=== PATIENT | female | born 1950 | race Caucasian/White ===

== ENCOUNTER 2017-11-10 22:57 | Emergency (ER) | payer OTHER ==
[~2017-11-10 22:57] MED LIST: BYST5TAB2 PO; HYDR1ELX PO; LEVO88TA2 PO; LORA0.5T PO; PRAV20TA2 PO
[2017-11-10 23:05] VITALS: BP 171/120; PULSE 73; RESP 16; TEMP 98.3; O2SAT 99
[2017-11-10] MEDS ORDERED: SODIUM CHLORIDE 0.9% FLUSH 10 ML FLUSH IV FLUSH PRN (23:15)
[2017-11-10] MEDS ORDERED: ONDANSETRON HCL 4 MG/2 ML VIAL ONE (23:32)
[2017-11-11 00:19] VITALS: O2SAT 99
[2017-11-11] MEDS ORDERED: BYST5TAB2 PO (00:23)
[2017-11-11] MEDS ORDERED: HYDROmorphone HCL PF 1 MG/ML VIAL IV PUSH ONE (00:30)
[2017-11-11] MEDS ORDERED: ONDANSETRON HCL 4 MG/2 ML VIAL IV PUSH ONE (00:30)
[2017-11-11] MEDS ORDERED: SODIUM CHLORID 0.9% 500 ML INJ 500 ML IV ONE (00:30)
--- NOTE | 2017-11-11 00:30 | PD ---
HPI Chief Complaint: Abdominal Pain Time Seen by Provider: 00:26 Travel History International Travel<30 days: No Contact w/Intl Traveler<30days: No Traveled to known affect area: No History of Present Illness HPI 67-year-old female patient with history of stomach cancer stage IV, follows up with Dr. Ahumada, has been on chemotherapy and they are evaluating her for possible surgical treatment, here because of worsening in upper abdominal pain especially on the right side. Pain is rated 10 out of 10. She has been nauseous and throwing up. She denies any fevers or other issues. She states that this is ongoing pain but has worsened tonight. Modifying Factors: None Associated Signs & Symptoms: Upper abdominal pains, nausea and vomiting Risk Factors: History of stomach cancer PFSH Past Medical History Arthritis: Yes (rheumatoid athritis) Anxiety: Yes Depression: Yes Cancer: Yes Cardiovascular Problems: No High Cholesterol: Yes Chemotherapy: No Diabetes: No Diminished Hearing: No Endocrine: Yes GERD: No Genitourinary: No Hepatitis: No Hiatal Hernia: No Hypertension: Yes Immune Disorder: No Medical other: Yes (abd cx) Musculoskeletal: Yes Neurologic: No Psychiatric: Yes Reproductive: Yes Respiratory: No Radiation Therapy: No Thyroid Disease: Yes Ulcer: No Past Surgical History Abdominal Surgery: Yes (hernia repair bladder repair) AICD: No Body Medical Devices: N/A Cardiac Surgery: No Ear Surgery: No Endocrine Surgery: No Eye Surgery: Yes (blood clot) Genitourinary Surgery: No Gynecologic Surgery: Yes (csection hystercetomy) Hysterectomy: Yes Joint Replacement: No Oral Surgery: No Pacemaker: No Thoracic Surgery: No Other Surgery: Yes (INGUINAL HERNIA ) Social History Alcohol Use: No Tobacco Use: No Substance Use: No Allergies-Medications (Allergen,Severity, Reaction): Coded Allergies: Sulfa (Sulfonamide Antibiotics) (Verified Allergy, Severe, RASH, 11/11/17) ibuprofen (Verified Allergy, Severe, RASH, 11/11/17) penicillin G (Verified Allergy, Severe, RASH, 11/11/17) Reported Meds & Prescriptions Reported Meds & Active Scripts Active Reported Bystolic (Nebivolol) 5 Mg Tab 5 Mg PO EVERY OTHER DAY Lortab Liq (Hydrocodone-Acetaminophen Liq) 10-300 Mg/15 Ml Elix 10 Ml PO Q6H PRN Lorazepam 0.5 Mg Tab 0.5 Mg PO Q8H PRN Pravastatin 20 Mg Tab 20 Mg PO DAILY Levothyroxine (Levothyroxine Sodium) 88 Mcg Tab 88 Mcg PO DAILY Review of Systems Except as stated in HPI: all other systems reviewed are Neg Physical Exam Narrative GENERAL: Well-developed elderly female patient currently in moderate distress. She is anxious, crying in the ER. Awake and oriented 3. SKIN: Focused skin assessment warm/dry. HEAD: Atraumatic. Normocephalic. EYES: Pupils equal and round. No scleral icterus. No injection or drainage. ENT: No nasal bleeding or discharge. Mucous membranes pink and moist. NECK: Trachea midline. No JVD. Supple. CARDIOVASCULAR: Regular rate and rhythm. No murmur appreciated. RESPIRATORY: No accessory muscle use. Clear to auscultation. Breath sounds equal bilaterally. GASTROINTESTINAL: Abdomen soft, upper abdominal tenderness especially in the right upper quadrant without guarding or rebound, nondistended. Hepatic and splenic margins not palpable. MUSCULOSKELETAL: No obvious deformities. No clubbing. No cyanosis. No edema. NEUROLOGICAL: Awake and alert. No obvious cranial nerve deficits. Motor grossly within normal limits. Normal speech. PSYCHIATRIC: Anxious mood and affect; insight and judgment normal. Data Data Last Documented VS Vital Signs Date Time Temp Pulse Resp B/P (MAP) Pulse Ox O2 Delivery O2 Flow Rate FiO2 11/11/17 00:19 99 Room Air 11/10/17 23:05 98.3 73 16 171/120 (137) Orders Orders Complete Blood Count With Diff (11/10/17 23:11) Comprehensive Metabolic Panel (11/10/17 23:11) Lipase (11/10/17 23:11) Urinalysis - C+S If Indicated (11/10/17 23:11) Iv Access Insert/Monitor (11/10/17 23:11) Ecg Monitoring (11/10/17 23:11) Oximetry (11/10/17 23:11) Sodium Chloride 0.9% Flush (Ns Flush) (11/10/17 23:15) Ondansetron Inj (Zofran Inj) (11/10/17 23:32) Ondansetron Inj (Zofran Inj) (11/11/17 00:30) Sodium Chlorid 0.9% 500 Ml Inj (Ns 500 M (11/11/17 00:30) Ct Abd/Pel W Iv Contrast(Rout) (11/11/17 00:27) Hydromorphone Pf Inj (Dilaudid Pf Inj) (11/11/17 00:45) Urine Culture (11/11/17 00:38) Iohexol 350 Inj (Omnipaque 350 Inj) (11/11/17 03:30) Ed Discharge Order (11/11/17 03:55) Nitrofurantoin Monohyd Macrocr (Macrobid (11/11/17 04:00) Labs Laboratory Tests Test 11/11/17 00:22 11/11/17 00:38 White Blood Count 6.5 TH/MM3 Red Blood Count 4.14 MIL/MM3 Hemoglobin 12.6 GM/DL Hematocrit 37.7 % Mean Corpuscular Volume 91.0 FL Mean Corpuscular Hemoglobin 30.5 PG Mean Corpuscular Hemoglobin Concent 33.5 % Red Cell Distribution Width 18.3 % Platelet Count 319 TH/MM3 Mean Platelet Volume 8.6 FL Neutrophils (%) (Auto) 70.2 % Lymphocytes (%) (Auto) 15.6 % Monocytes (%) (Auto) 12.0 % Eosinophils (%) (Auto) 1.7 % Basophils (%) (Auto) 0.5 % Neutrophils # (Auto) 4.6 TH/MM3 Lymphocytes # (Auto) 1.0 TH/MM3 Monocytes # (Auto) 0.8 TH/MM3 Eosinophils # (Auto) 0.1 TH/MM3 Basophils # (Auto) 0.0 TH/MM3 CBC Comment DIFF FINAL Differential Comment Blood Urea Nitrogen 4 MG/DL Creatinine 0.69 MG/DL Random Glucose 92 MG/DL Total Protein 6.3 GM/DL Albumin 3.0 GM/DL Calcium Level 9.2 MG/DL Alkaline Phosphatase 93 U/L Aspartate Amino Transf (AST/SGOT) 48 U/L Alanine Aminotransferase (ALT/SGPT) 27 U/L Total Bilirubin 0.3 MG/DL Sodium Level 139 MEQ/L Potassium Level 3.7 MEQ/L Chloride Level 101 MEQ/L Carbon Dioxide Level 30.6 MEQ/L Anion Gap 7 MEQ/L Estimat Glomerular Filtration Rate 85 ML/MIN Lipase 142 U/L Urine Color YELLOW Urine Turbidity HAZY Urine pH 6.5 Urine Specific [place] 1.017 Urine Protein TRACE mg/dL Urine Glucose (UA) NEG mg/dL Urine Ketones NEG mg/dL Urine Occult Blood NEG Urine Nitrite NEG Urine Bilirubin NEG Urine Urobilinogen LESS THAN 2.0 MG/DL Urine Leukocyte Esterase LARGE Urine RBC 2 /hpf Urine WBC 32 /hpf Urine Squamous Epithelial Cells 2 /hpf Urine Calcium Oxalate Crystals FEW /hpf Urine Mucus MANY /lpf Microscopic Urinalysis Comment CULTURE INDICATED MDM Medical Decision Making Medical Screen Exam Complete: Yes Emergency Medical Condition: Yes Medical Record Reviewed: Yes Interpretation(s) Laboratory Tests Test 11/11/17 00:22 11/11/17 00:38 Red Cell Distribution Width 18.3 % (11.6-17.2) Neutrophils (%) (Auto) 70.2 % (16.0-70.0) Monocytes (%) (Auto) 12.0 % (0.0-8.0) Blood Urea Nitrogen 4 MG/DL (7-18) Total Protein 6.3 GM/DL (6.4-8.2) Albumin 3.0 GM/DL (3.4-5.0) Aspartate Amino Transf (AST/SGOT) 48 U/L (15-37) Estimat Glomerular Filtration Rate 85 ML/MIN (>89) Urine Turbidity HAZY (CLEAR) Urine Leukocyte Esterase LARGE (NEG) Urine WBC 32 /hpf (0-5) Urine Calcium Oxalate Crystals FEW /hpf (NONE) Urine Mucus MANY /lpf (OCC) Differential Diagnosis Abdominal pain, nausea and vomiting: Cancer related pain versus obstruction versus pancreatitis versus metastases versus other acute intra-abdominal processes Narrative Course Lab work shows significant UTI. Her AST is mildly elevated. CAT scan did not show any signs of acute processes. She has signs that she has a gastric carcinoma which is consistent with history. At this point, patient had been given IV fluids and pain medications and on reevaluation at 3:50 AM, she appears to be much improved, states that the pain is much more controlled now. My plan would be to release her with treatment for UTI and have her follow-up with Dr. Parra regarding further pain control. Return for any worsening in symptoms as necessary. The plan has been discussed with her and she states understanding. Diagnosis Primary Impression: Abdominal pain Additional Impression: UTI (urinary tract infection) Med/Other Pt SpecificInfo: Prescription(s) given Scripts Ondansetron Odt (Zofran Odt) 4 Mg Tab 4 MG SL Q6HR Y for Nausea/Vomiting, #7 TAB 0 Refills Prov: Jose Manuel Freeman MD 11/11/17 Nitrofurantoin Monohydrate Macrocrystals (Macrobid) 100 Mg Cap 100 MG PO BID for Infection for 7 Days, #14 CAP 0 Refills Prov: Jose Manuel Freeman MD 11/11/17 Disposition: 01 DISCHARGE HOME Condition: Stable Jose Manuel Freeman MD Nov 11, 2017 00:30
[2017-11-11 00:39] LABS: AUTOMATED NEUTROPHIL # 4.6 TH/MM3 (1.8-7.7); BASOPHIL % 0.5 % (0.0-2.0); EOSINOPHIL # 0.1 TH/MM3 (0-0.4); EOSINOPHIL % 1.7 % (0.0-4.0); HEMATOCRIT 37.7 % (35.0-46.0); HEMOGLOBIN 12.6 GM/DL (11.6-15.3); LYMPH % 15.6 % (9.0-44.0); MEAN CORPUSCULAR HEMOGLOBIN 30.5 PG (27.0-34.0); MEAN CORPUSCULAR HGB CONC 33.5 % (32.0-36.0); MEAN PLATELET VOLUME 8.6 FL (7.0-11.0); MONOCYTE # 0.8 TH/MM3 (0-0.9); NEUT % 70.2 % (16.0-70.0); PLATELET COUNT 319 TH/MM3 (150-450); RED BLOOD COUNT 4.14 MIL/MM3 (4.00-5.30); RED CELL DISTRIBUTION WIDTH 18.3 % (11.6-17.2); WHITE BLOOD COUNT 6.5 TH/MM3 (4.0-11.0)
[2017-11-11] MEDS ORDERED: HYDROmorphone HCL PF 2 MG/ML VIAL IV PUSH ONE (00:45)
[2017-11-11 00:51] LABS: BILIRUBIN, URINE NEG (NEG); BLOOD, URINE NEG (NEG); CALCIUM OXALATE CRYSTALS,URINE FEW /hpf; GLUCOSE,URINE NEG (NEG); KETONE, URINE NEG (NEG); MUCUS URINE MANY /lpf (OCC); NITRITE,URINE NEG (NEG); PH, URINE 6.5 (5.0-8.5); SQUAMOUS EPITHELIAL CELL URINE 2 /hpf (0-5); URINE COLOR YELLOW (YELLW/STRAW); URINE LEUKOCYTE ESTERASE LARGE (NEG)
[2017-11-11 00:52] LABS: ALT (GPT) 27 U/L (10-53); AST (GOT) 48 U/L (15-37); BICARBONATE 30.6 MEQ/L (21.0-32.0); BLOOD UREA NITROGEN 4 MG/DL (7-18); CALCIUM 9.2 MG/DL (8.5-10.1); CHLORIDE 101 MEQ/L (98-107); CREATININE 0.69 MG/DL (0.50-1.00); GLOMERULAR FILTRATION RATE 85 ML/MIN (>89); GLUCOSE,RANDOM 92 MG/DL (74-106); SODIUM (NA) 139 MEQ/L (136-145)
[2017-11-11 00:54] LABS: ALKALINE PHOSPHATASE 93 U/L (45-117); TOTAL BILIRUBIN ADULT 0.3 MG/DL (0.2-1.0); TOTAL PROTEIN 6.3 GM/DL (6.4-8.2)
[2017-11-11] MEDS ORDERED: IOHEXOL 350 MG/ML 10 ML VIAL (for RAD DIAG) IVCONTRAST ONE (03:30)
--- NOTE | 2017-11-11 03:50 | RADRPT ---
EXAM DATE/TIME: 11/11/2017 03:22 [facility] COMPARISON: No previous studies available for comparison. INDICATIONS : Abdominal pain. IV CONTRAST: 96 cc Omnipaque 350 (iohexol) IV ORAL CONTRAST: No oral contrast ingested. RADIATION DOSE: 6.47 CTDIvol (mGy) MEDICAL HISTORY : Hepatitis B. Hypertension. Carcinoma, gastric.omental metastatic disease SURGICAL HISTORY : Hysterectomy. ENCOUNTER: Initial ACUITY: 1 day PAIN SCALE: 7/10 LOCATION: Left abdomen TECHNIQUE: Volumetric scanning of the abdomen and pelvis was performed. Using automated exposure control and ad justment of the mA and/or kV according to patient size, radiation dose was kept as low as reasonably achievable to obtain optimal diagnostic quality images. DICOM format image data is available electro nically for review and comparison. FINDINGS: Wall thickening seen of the stomach, mostly intramammary distal body. Patchy haziness seen of the ome ntum without a well-defined mass. There is small, diffuse ascites. Solid organs appear normal. CT appearance of the gallbladder within normal limits. No obstruction or acute inflammatory changes are seen of the gastrointestinal tract. Previous hysterectomy. No infiltrate or effusion seen of the visualized lung bases. No acute bony abnormality demonstrated. CONCLUSION: 1. Wall thickening of the stomach and mild thickening/haziness of the omentum with small ascites woul d be consistent with reported history of gastric carcinoma and omental metastatic disease. 2. No other abnormalities are demonstrated.. Salomón Good MD on November 11, 2017 at 3:44 Board Certified Radiologist. This report was verified electronically.
[2017-11-11] MEDS ORDERED: ZOFR4TAB3 SL (03:57)
[2017-11-11] MEDS ORDERED: MACR100C2 PO (03:57)
[2017-11-11] MEDS ORDERED: NITROFURANTOIN MONOHYD MACROCR 100 MG CAP PO ONE (04:00)
== END 2017-11-11 04:28 | disposition home or self-care (01) ==
LOC: NEPE 22:57
DX: N39.0 Urinary tract infection, site not specified (principal); C16.9 Malignant neoplasm of stomach, unspecified; R11.2 Nausea with vomiting, unspecified; M06.9 Rheumatoid arthritis, unspecified; F41.9 Anxiety disorder, unspecified; E78.00 Pure hypercholesterolemia, unspecified; E07.9 Disorder of thyroid, unspecified
CPT/HCPCS: 74177; 80053; 81001; 83690; 85025; 87086; 96361; 96374; 96375; 99284; J1170; J2405; J7040; Q9967

== ENCOUNTER 2017-11-21 13:49 | Emergency (ER) | payer OTHER ==
[~2017-11-21 13:49] MED LIST changes: +MACR100C2 PO; +ZOFR4TAB3 SL
[2017-11-21 14:17] VITALS: BP 128/68; PULSE 73; RESP 18; TEMP 97.4; O2SAT 99
--- NOTE | 2017-11-21 15:12 | RADRPT ---
EXAM DATE/TIME: 11/21/2017 14:49 [facility] COMPARISON: CT ABDOMEN & PELVIS W CONTRAST, November 11, 2017, 3:22. INDICATIONS : Altered mental status. RADIATION DOSE: 35.74 CTDIvol (mGy) MEDICAL HISTORY : Hypertension. Stomach cancer. SURGICAL HISTORY : Hysterectomy. ENCOUNTER: Initial ACUITY: 1 day PAIN SCALE: 0/10 LOCATION: cranial TECHNIQUE: Multiple contiguous axial images were obtained of the head. Using automated exposure control and adj ustment of the mA and/or kV according to patient size, radiation dose was kept as low as reasonably a chievable to obtain optimal diagnostic quality images. DICOM format image data is available electro nically for review and comparison. FINDINGS: CEREBRUM: The ventricles are normal for age. No evidence of midline shift, mass lesion, hemorrhage or acute in farction. No extra-axial fluid collections are seen. POSTERIOR FOSSA: The cerebellum and brainstem are intact. The 4th ventricle is midline. The cerebellopontine angle i s unremarkable. EXTRACRANIAL: The visualized portion of the orbits is intact. SKULL: The calvaria is intact. No evidence of skull fracture. CONCLUSION: 1. No acute intracranial abnormality identified. Florentino Tran MD on November 21, 2017 at 15:09 Board Certified Radiologist. This report was verified electronically.
[2017-11-21 16:06] LABS: BASOPHIL % 0.3 % (0.0-2.0); EOSINOPHIL % 0.2 % (0.0-4.0); HEMATOCRIT 38.9 % (35.0-46.0); HEMOGLOBIN 13.1 GM/DL (11.6-15.3); LYMPH % 11.5 % (9.0-44.0); LYMPHOCYTE # 0.9 TH/MM3 (1.0-4.8); MEAN CELL VOLUME 91.8 FL (80.0-100.0); MEAN CORPUSCULAR HEMOGLOBIN 30.9 PG (27.0-34.0); MEAN CORPUSCULAR HGB CONC 33.7 % (32.0-36.0); MEAN PLATELET VOLUME 8.7 FL (7.0-11.0); MONO % 10.5 % (0.0-8.0); MONOCYTE # 0.8 TH/MM3 (0-0.9); NEUT % 77.5 % (16.0-70.0); PLATELET COUNT 326 TH/MM3 (150-450); RED BLOOD COUNT 4.24 MIL/MM3 (4.00-5.30); RED CELL DISTRIBUTION WIDTH 17.3 % (11.6-17.2); WHITE BLOOD COUNT 7.8 TH/MM3 (4.0-11.0)
[2017-11-21 16:23] LABS: PROTHROMBIN TIME - PATIENT 10.4 SEC (9.8-11.6)
[2017-11-21 16:53] LABS: ALBUMIN 2.6 GM/DL (3.4-5.0); ALT (GPT) 16 U/L (10-53); AST (GOT) 36 U/L (15-37); BICARBONATE 29.9 MEQ/L (21.0-32.0); BLOOD UREA NITROGEN 7 MG/DL (7-18); CALCIUM 8.9 MG/DL (8.5-10.1); CHLORIDE 101 MEQ/L (98-107); CREATININE 0.62 MG/DL (0.50-1.00); GLOMERULAR FILTRATION RATE 97 ML/MIN (>89); GLUCOSE,RANDOM 88 MG/DL (74-106); SODIUM (NA) 137 MEQ/L (136-145)
[2017-11-21 17:02] LABS: ALKALINE PHOSPHATASE 116 U/L (45-117); TOTAL BILIRUBIN ADULT 0.4 MG/DL (0.2-1.0); TOTAL PROTEIN 6.4 GM/DL (6.4-8.2)
[2017-11-21 19:10] VITALS: BP 166/83; PULSE 77; RESP 14; O2SAT 98
[2017-11-21 19:10] LABS: BILIRUBIN, URINE SMALL (NEG); BLOOD, URINE NEG (NEG); CALCIUM OXALATE CRYSTALS,URINE MANY /hpf; GLUCOSE,URINE NEG (NEG); HYALINE CAST, URINE 33 /lpf (RARE); KETONE, URINE TRACE mg/dL (NEG); MUCUS URINE MANY /lpf (OCC); NITRITE,URINE NEG (NEG); SQUAMOUS EPITHELIAL CELL URINE 3 /hpf (0-5); URINE COLOR DARK-YELLOW (YELLW/STRAW); URINE LEUKOCYTE ESTERASE MOD (NEG)
[2017-11-21] MEDS ORDERED: BYST5TAB2 PO (19:23)
[2017-11-21] MEDS ORDERED: ESCI10TA PO (19:23)
[2017-11-21] MEDS ORDERED: METH5TAB PO (19:23)
[2017-11-21] MEDS ORDERED: VITA2000 PO (19:23)
[2017-11-21] MEDS ORDERED: HYDR-3583 PO (19:23)
[2017-11-21] MEDS ORDERED: APIX5TAB PO (19:23)
--- NOTE | 2017-11-21 19:23 | EKG ---
Date Performed: 11/21/2017 Time Performed: 15:33:36 PTAGE: 67 years EKG: Sinus rhythm Nonspecific T wave changes Compared to prior electrocardiogram, Nonspecific T wave changes are more marked PREVIOUS TRACING : 05/18/2017 18.03 DOCTOR: Adán Nicole Interpretating Date/Time 11/21/2017 19:22:28
[2017-11-21] MEDS ORDERED: HYDROmorphone HCL PF 2 MG/ML VIAL IM ONE (19:45)
[2017-11-21] MEDS ORDERED: LORazepam 2 MG/ML VIAL IM ONE (19:45)
[2017-11-21] MEDS ORDERED: ONDANSETRON ODT 4 MG TAB PO ONE (19:45)
--- NOTE | 2017-11-21 19:47 | PD ---
HPI Chief Complaint: Altered Mental Status Time Seen by Provider: 19:16 Travel History International Travel<30 days: No Contact w/Intl Traveler<30days: No Traveled to known affect area: No History of Present Illness HPI 67-year-old female complains of mental confusion. 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 Patient has chronic abdominal pain, with nausea and constipation. Patient was started on methadone 5 days ago with a half a dose. Patient increase methadone to full dosage 3 days ago. Patient noticed increasing confusion since then. Patient was seen at oncology clinic this morning and referred ED for evaluation. Patient denies any headache. Patient denies any visual change. Patient denies any chest pain or shortness of breath. Patient states the abdominal pain including epigastric right upper quadrant and lower abdomen is not new. Patient had will CT scan abdomen pelvis done recently and was normal. Patient is on pain medication for that. Patient was treated for UTI recently with Macrobid. Last dose of Macrobid was 3 days ago. Patient denies any fever chills. PFSH Past Medical History Arthritis: Yes (rheumatoid athritis) Anxiety: Yes Depression: Yes Cancer: Yes (stomach) Cardiovascular Problems: No High Cholesterol: Yes Chemotherapy: Yes (last 11/14/17) Diabetes: No Diminished Hearing: No Endocrine: Yes Gastrointestinal Disorders: Yes GERD: No Genitourinary: No Hepatitis: No Hiatal Hernia: No Hypertension: Yes Immune Disorder: No Implanted Vascular Access Dvce: Yes Musculoskeletal: Yes Neurologic: No Psychiatric: Yes Reproductive: Yes Respiratory: No Radiation Therapy: No Thyroid Disease: Yes Ulcer: No Past Surgical History Abdominal Surgery: Yes (hernia repair bladder repair) AICD: No Body Medical Devices: left chest port Cardiac Surgery: No Ear Surgery: No Endocrine Surgery: No Eye Surgery: Yes (blood clot) Genitourinary Surgery: No Gynecologic Surgery: Yes (csection hystercetomy) Hysterectomy: Yes Joint Replacement: No Oral Surgery: No Pacemaker: No Thoracic Surgery: No Other Surgery: Yes (INGUINAL HERNIA ) Social History Alcohol Use: No Tobacco Use: No Substance Use: No Allergies-Medications (Allergen,Severity, Reaction): Coded Allergies: Sulfa (Sulfonamide Antibiotics) (Verified Allergy, Severe, RASH, 11/21/17) ibuprofen (Verified Allergy, Severe, RASH, 11/21/17) penicillin G (Verified Allergy, Severe, RASH, 11/21/17) Reported Meds & Prescriptions Reported Meds & Active Scripts Active Zofran Odt (Ondansetron Odt) 4 Mg Tab 4 Mg SL Q6HR PRN Reported Eliquis (Apixaban) 5 Mg Tab 5 Mg PO BID Escitalopram (Escitalopram Oxalate) 10 Mg Tab 10 Mg PO DAILY Methadone (Methadone HCl) 5 Mg Tab 5 Mg PO DAILY Hydrocodone-Acetaminophen 10-325 mg Tab 1 Tab PO Q6H PRN Bystolic (Nebivolol) 5 Mg Tab 5 Mg PO DAILY Vitamin D3 (Cholecalciferol) 2,000 Unit Cap 2,000 Units PO DAILY Lorazepam 0.5 Mg Tab 0.5 Mg PO Q8H PRN Pravastatin 20 Mg Tab 20 Mg PO DAILY Levothyroxine (Levothyroxine Sodium) 88 Mcg Tab 88 Mcg PO DAILY Review of Systems General / Constitutional: No: Fever Eyes: No: Visual changes HENT: No: Headaches Cardiovascular: No: Chest Pain or Discomfort Respiratory: No: Shortness of Breath Gastrointestinal: Positive: Abdominal Pain Genitourinary: No: Dysuria Musculoskeletal: No: Pain Skin: No Rash Neurologic: No: Weakness Psychiatric: No: Depression Endocrine: No: Polydipsia Hematologic/Lymphatic: No: Easy Bruising Physical Exam Narrative GENERAL: Well-nourished, well-developed patient. SKIN: Focused skin assessment warm/dry. HEAD: Normocephalic. EYES: No scleral icterus. No injection or drainage. NECK: Supple, trachea midline. No JVD or lymphadenopathy. CARDIOVASCULAR: Regular rate and rhythm without murmurs, gallops, or rubs. RESPIRATORY: Breath sounds equal bilaterally. No accessory muscle use. GASTROINTESTINAL: Abdomen soft, nondistended. Patient has moderate tenderness to palpation epigastric, right upper quadrant and low abdomen. No rebound tenderness. MUSCULOSKELETAL: No cyanosis, or edema. BACK: Nontender without obvious deformity. No CVA tenderness. Neurologic exam: Patient is awake and alert oriented 3. No obvious focal neurological deficit. Data Data Last Documented VS Vital Signs Date Time Temp Pulse Resp B/P (MAP) Pulse Ox O2 Delivery O2 Flow Rate FiO2 11/21/17 19:10 77 14 166/83 (110) 98 Room Air 11/21/17 14:17 97.4 Orders Orders Electrocardiogram (11/21/17 14:21) Complete Blood Count With Diff (11/21/17 14:21) Comprehensive Metabolic Panel (11/21/17 14:21) Creatine Kinase (Cpk) (11/21/17 14:21) Prothrombin Time / Inr (Pt) (11/21/17 14:21) Act Partial Throm Time (Ptt) (11/21/17 14:21) Thyroid Stimulating Hormone (11/21/17 14:21) Urinalysis - C+S If Indicated (11/21/17 14:21) Ct Brain W/O Iv Contrast(Rout) (11/21/17 14:21) Hydromorphone Pf Inj (Dilaudid Pf Inj) (11/21/17 19:45) Lorazepam Inj (Ativan Inj) (11/21/17 19:45) Ondansetron Odt (Zofran Odt) (11/21/17 19:45) Labs Laboratory Tests Test 11/21/17 15:25 11/21/17 18:56 White Blood Count 7.8 TH/MM3 Red Blood Count 4.24 MIL/MM3 Hemoglobin 13.1 GM/DL Hematocrit 38.9 % Mean Corpuscular Volume 91.8 FL Mean Corpuscular Hemoglobin 30.9 PG Mean Corpuscular Hemoglobin Concent 33.7 % Red Cell Distribution Width 17.3 % Platelet Count 326 TH/MM3 Mean Platelet Volume 8.7 FL Neutrophils (%) (Auto) 77.5 % Lymphocytes (%) (Auto) 11.5 % Monocytes (%) (Auto) 10.5 % Eosinophils (%) (Auto) 0.2 % Basophils (%) (Auto) 0.3 % Neutrophils # (Auto) 6.0 TH/MM3 Lymphocytes # (Auto) 0.9 TH/MM3 Monocytes # (Auto) 0.8 TH/MM3 Eosinophils # (Auto) 0.0 TH/MM3 Basophils # (Auto) 0.0 TH/MM3 CBC Comment DIFF FINAL Differential Comment Prothrombin Time 10.4 SEC Prothromb Time International Ratio 1.0 RATIO Activated Partial Thromboplast Time 26.5 SEC Blood Urea Nitrogen 7 MG/DL Creatinine 0.62 MG/DL Random Glucose 88 MG/DL Total Protein 6.4 GM/DL Albumin 2.6 GM/DL Calcium Level 8.9 MG/DL Alkaline Phosphatase 116 U/L Aspartate Amino Transf (AST/SGOT) 36 U/L Alanine Aminotransferase (ALT/SGPT) 16 U/L Total Bilirubin 0.4 MG/DL Sodium Level 137 MEQ/L Potassium Level 4.1 MEQ/L Chloride Level 101 MEQ/L Carbon Dioxide Level 29.9 MEQ/L Anion Gap 6 MEQ/L Estimat Glomerular Filtration Rate 97 ML/MIN Total Creatine Kinase 44 U/L Thyroid Stimulating Hormone 3rd Gen 2.520 uIU/ML Urine Color DARK-YELLOW Urine Turbidity HAZY Urine pH 6.0 Urine Specific [place] 1.038 Urine Protein 30 mg/dL Urine Glucose (UA) NEG mg/dL Urine Ketones TRACE mg/dL Urine Occult Blood NEG Urine Nitrite NEG Urine Bilirubin SMALL Urine Urobilinogen 4.0 MG/DL Urine Leukocyte Esterase MOD Urine WBC 6 /hpf Urine Squamous Epithelial Cells 3 /hpf Urine Calcium Oxalate Crystals MANY /hpf Urine Hyaline Casts 33 /lpf Urine Mucus MANY /lpf Microscopic Urinalysis Comment CATH-CULT NOT IND MDM Medical Decision Making Medical Screen Exam Complete: Yes Emergency Medical Condition: Yes Differential Diagnosis Differential diagnoses including side effect of pain medication, intracranial pathology, electrolyte imbalance, sepsis. Narrative Course 67-year-old female with increasing confusion after started on methadone. History of unresectable esophageal cancer. On chemotherapy. I spoke with Dr. Ahumada. Advised for patient to follow with her in the office. Dilaudid 1 mg IM. Ativan 1 mg IM. Zofran 4 mg ODT. Diagnosis Primary Impression: Side effect of medication Patient Instructions: General Instructions Additional Instructions: Advised patient to decrease her methadone dosage to half. Follow-up with personal physician. Return if worse. Med/Other Pt SpecificInfo: Existing Med Changed Disposition: 01 DISCHARGE HOME Condition: Stable Daniel Aldridge MD Nov 21, 2017 19:47
== END 2017-11-21 20:29 | disposition home or self-care (01) ==
LOC: NEPD 13:49
DX: R41.0 Disorientation, unspecified (principal); T40.3X5A Adverse effect of methadone, initial encounter; C15.9 Malignant neoplasm of esophagus, unspecified; I10 Essential (primary) hypertension; E78.00 Pure hypercholesterolemia, unspecified; E07.9 Disorder of thyroid, unspecified; M06.9 Rheumatoid arthritis, unspecified; F41.9 Anxiety disorder, unspecified; F32.9 Major depressive disorder, single episode, unspecified
CPT/HCPCS: 70450; 80053; 81001; 82550; 84443; 85025; 85610; 85730; 93005; 96372; 99285; J1170; J2060